=== PATIENT | female | born 1985 ===

== ENCOUNTER 2025-02-23 05:37 | Day surgery (SDC) | payer OTHER ==
[2025-02-18 09:30] VITALS: BP 113/84
[~2025-02-23] VITALS: Ht 162.6 cm; Wt 65.8 kg
[~2025-02-23 05:37] MED LIST: ARIPIPRAZOLE OD10 MG PO; CONCERTA36 MG PO; LAMICTAL25 M1
[2025-02-23] MEDS ORDERED: POVIDONE-IODINE 118 ML BOTT TOP ONE (07:25)
[2025-02-23] MEDS ORDERED: CHLORHEXIDINE GLUCONATE 120 ML BOTTLE TOP ONE (07:25)
[2025-02-23] MEDS ORDERED: IBU600 MG PO (09:18)
[2025-02-23] MEDS ORDERED: MORPHINE SULFATE 4 MG/ML VIAL IV ONE (09:20)
== END 2025-02-23 10:50 | disposition home or self-care (01) ==
LOC: CIR.AMB 05:37
PROVIDERS: ATTEND Obstetrics & Gynecology Gynecology
DX: N84.0 Polyp of corpus uteri (principal)